=== PATIENT | female | born 1950 | race Caucasian/White ===

== ENCOUNTER → 2024-07-02 07:54 | Outpatient (REF) | payer MEDICARE, SELFPAY ==
[2024-07-02 09:55] LABS: % Basophils 1.5 % (0-2); % Immature Granulocytes 0.5 % (0-0.5); % Lymphocytes 31.4 % (20.5-51.1); % Monocytes 8.7 % (1.7-9.3); % Neutrophils 50.9 % (42.2-75.2); Absolute Basophils 0.1 10^3/uL (0-0.2); Absolute Eosinophils 0.6 10^3/uL (0-0.7); Absolute Lymphocytes 2.5 10^3/uL (1.2-3.4); Absolute Monocytes 0.7 10^3/uL (0.1-0.6); Absolute Neutrophils 4.1 10^3/uL (1.4-6.5); Hematocrit 42.2 % (37.0-47.0); Hemoglobin 14.1 g/dL (12.0-16.0); Mean Corp Hgb Conc. 33.4 g/dL (33.0-37.0); Mean Corpuscular Volume 101.7 fL (81.0-99.0); Mean Platelet Volume 11.1 fL (7.4-10.4); Nucleated Red Blood Cells % 0 %; Platelet Count 199 10^3/uL (130-400); Red Blood Cell Count 4.15 10^6/uL (4.20-5.40); Red Cell Dist. Width 12.9 % (11.5-14.5)
[2024-07-02 10:07] LABS: ALT (SGPT) 34 U/L (0-35); AST (SGOT) 32 U/L (14-36); Alkaline Phosphatase 75 U/L (38-126); Blood Urea Nitrogen 20 mg/dl (7-17); Calcium 9.5 mg/dl (8.4-10.2); Carbon Dioxide 30 mmol/L (22-30); Chloride 103 mmol/L (98-107); Glucose 104 mg/dl (70-99); HDL Cholesterol 63 mg/dl; LDL Cholesterol, Calculated 114 mg/dl; Potassium 4.2 mmol/L (3.5-5.1); Sodium 139 mmol/L (135-145); Total Bilirubin 0.4 mg/dl (0.2-1.3); Total Cholesterol 199 mg/dl (50-199); Total Protein 6.2 g/dl (6.3-8.2); Triglyceride 111 mg/dl (10-149); Very Low Density Lipoprotein 22 mg/dl (0-30); eGFR > 60.00
[2024-07-02 10:20] LABS: Glycohemoglobin (HgbA1c) 5.4 % (4.0-5.6)
[2024-07-02 10:33] LABS: TSH 3.48 uIU/ml (0.47-4.68)
== END ==
LOC: HWLAB 07:54
PROVIDERS: ATTENDING PHYSICIAN Internal Medicine
DX: E78.5 Hyperlipidemia, unspecified (principal); R73.01 Impaired fasting glucose; R53.83 Other fatigue
CPT/HCPCS: 36415; 80053; 80061; 83036; 84443; 85025

== ENCOUNTER → 2024-07-05 09:36 | Outpatient (REF) | payer MEDICARE, SELFPAY | LOC: HWRAD 09:36 | PROVIDERS: ATTENDING PHYSICIAN Internal Medicine | DX: Z87.891 Personal history of nicotine dependence (principal) | CPT/HCPCS: 71271 ==

== ENCOUNTER → 2025-06-03 10:50 | Outpatient (REF) | payer MEDICARE, SELFPAY | LOC: HWRAD 10:50 | PROVIDERS: ATTENDING PHYSICIAN Internal Medicine | DX: M25.511 Pain in right shoulder (principal); M25.512 Pain in left shoulder; M25.551 Pain in right hip; M25.552 Pain in left hip | CPT/HCPCS: 73030; 73521 ==

== ENCOUNTER 2025-08-25 17:39 | Emergency (ER) | payer MEDICARE, SELFPAY ==
[2025-08-25 17:41] VITALS: BP 129/87
[2025-08-25 18:05] LABS: Hematocrit 43.5 % (37.0-47.0); Hemoglobin 14.8 g/dL (12.0-16.0); Mean Corp Hgb Conc. 34.0 g/dL (33.0-37.0); Mean Corpuscular Volume 94.4 fL (81.0-99.0); Nucleated Red Blood Cells % 0 %; Platelet Count 256 10^3/uL (130-400); Red Cell Dist. Width 13.4 % (11.5-14.5)
[2025-08-25 18:21] LABS: ALT (SGPT) 54 U/L (0-35); AST (SGOT) 28 U/L (14-36); Albumin 4.4 g/dl (3.5-5.0); Alkaline Phosphatase 79 U/L (38-126); Blood Urea Nitrogen 23 mg/dl (7-17); Calcium 9.6 mg/dl (8.4-10.2); Carbon Dioxide 26 mmol/L (22-30); Chloride 98 mmol/L (98-107); Glucose 112 mg/dl (70-99); Potassium 4.1 mmol/L (3.5-5.1); Sodium 133 mmol/L (135-145); Total Protein 6.8 g/dl (6.3-8.2); eGFR 59.12
[2025-08-25 18:38] LABS: COVID-19 Antigen Negative (Negative)
[2025-08-25 19:12] VITALS: BP 132/92
--- NOTE | 2025-08-25 19:28 | ED.GENMED ---
History of Present Illness
General
Chief Complaint: Weakness
Time Seen by Provider: 08/25/25 19:28
History of Present Illness
History of Present Illness:
FOCUSED PAST MEDICAL HISTORY
- High blood pressure, anxiety/depression
REVIEW OF OLD RECORDS
-
Note:
CHIEF COMPLAINT(S)
Sinus infection, insomnia, chills, and body aches.
HISTORY OF PRESENT ILLNESS
The patient is a 75-year-old female with a recent history of sinus infection. She initially sought care at an urgent care center where she was prescribed antibiotics. She also began self-administration of [id number] medications, including
Mucinex and nasal sprays. The patient contacted her primary care physician due to persistent headaches and was prescribed a tapering dose of prednisone, of which she has two doses remaining.
The patient reports experiencing insomnia and body aches, which she attributes partly to the steroid regimen, although these symptoms were present before starting the medication. Additionally, she describes a history of urinary frequency, waking
four to five times per night to urinate, but denies any current dysuria or recent changes in urinary symptoms. She has been on Augmentin, which would generally cover urinary tract infections, making it less likely given her lack of urinary symptoms
change.
Past testing for COVID-19 and influenza was negative, and although she experienced chills, her temperature and white blood cell count remained within the higher end of normal, lacking any significant deviation suggestive of a severe bacterial
infection.
SOCIAL HISTORY
The patient reported a concern with her sleeping pattern, specifically related to her inability to rest sufficiently.
REVIEW OF SYSTEMS
- Neurological: Persistent headaches, insomnia.
- Respiratory: No wheezing or labored breathing.
- Gastrointestinal: Normal bowel movements.
- Genitourinary: Urinary frequency, no burning sensation.
- Musculoskeletal: Body aches.
- General: Chills, no fever.
PHYSICAL EXAM
General: Alert, no acute distress.
Skin: Warm, dry.
Head: Normocephalic, atraumatic.
Neck: Supple, trachea midline.
Eyes, Ears, Nose, Mouth, and Throat: Oral mucosa moist. Hoarse voice noted.
Cardiovascular: Normal peripheral perfusion.
Respiratory: Respirations are non-labored. No wheeze. Clear lungs
Gastrointestinal: Abdomen non-distended.
Back: Normal range of motion, Normal alignment.
Musculoskeletal: Some decreased active range of motion at the left hip due to reported pain
Neurological: Alert and oriented to person, place, time, and situation, No focal neurological deficit observed.
Psychiatric: Cooperative, appropriate mood & affect.
PLAN
- Continue current antibiotics (Augmentin) as prescribed.
- Educate the patient on the possibility of symptoms being viral in nature.
- Recommend OTC use of Flonase (intranasal steroid) for sinus inflammation.
- Discussed potential adverse effects of steroids on sleep and advise regarding insomnia management.
- Consider blood cultures if symptoms persist, although unlikely to indicate a bloodstream infection. Vital signs are not consistent with sepsis.
- Return for evaluation if symptoms worsen or fail to improve.
DIFFERENTIAL DIAGNOSIS
The Differential Diagnosis includes, in no particular order and is not limited to:
- Viral upper respiratory tract infection
- Bacterial sinusitis
- Urinary tract infection
- Medication side effects (prednisone-induced insomnia)
- Viral syndrome
- Dehydration effects
- Anxiety-related disorder
- Chronic sinusitis
- Allergy-related symptoms
- Nocturia due to age-related changes
RADIOLOGY
- Chest x-ray clear
LABS
- White count 10.7, COVID-negative, chemistries relatively unremarkable
UPDATE
-SUMMARY OF ENCOUNTER
The patient, a 75-year-old female, presented to the emergency department with complaints consistent with a viral upper respiratory infection. She had been previously treated for a sinus infection with Amoxicillin/Clavulanate (Augmentin) and nasal
sprays. Despite her symptoms, the patient appeared well and did not exhibit any signs of sepsis. Her heart rate was in the high 90s, but she remained afebrile. A urinalysis was considered but not conducted due to her lack of new urinary symptoms and
her ongoing treatment with Augmentin.
PLAN
The patient is advised to continue her current treatment with Amoxicillin/Clavulanate. It was recommended to use Fluticasone Propionate (Flonase) for sinus inflammation. Additionally, management for insomnia potentially exacerbated by steroid use
was discussed. The patient was educated on the symptoms being viral in nature and advised to seek reevaluation if symptoms worsen or do not improve.
MEDICAL DECISION MAKING
1. Number and Complexity of Problems Addressed:
Chronic conditions affecting care include a history of sinus infection and steroid-induced insomnia. Differential diagnosis considerations included viral upper respiratory tract infection, bacterial sinusitis, urinary tract infection, medication
side effects, viral syndrome, anxiety-related disorder, and chronic sinusitis.
2. Data:
Category 1: A urinalysis was considered but ultimately not performed due to the ongoing treatment with Amoxicillin/Clavulanate and lack of new symptoms.
3. Risk:
Consideration was given for more invasive diagnostic testing, but it was deemed unnecessary. Prescription medication management involved continued antibiotics and intranasal steroids.
DIAGNOSIS
- Viral upper respiratory infection (J06.9)
- Sinusitis (J01.90)
Past History
Past History
ED Past Medical History: HTN and Psychiatric (Depression)
ED Past Surgical History: Appendectomy and Tonsilectomy
Social History
Employment: Employed
Phy Exam
Physical Exam
Physical Exam:
See HPI
Course
Orders/Labs/Results
Orders:
Orders
08/25/25 17:44
CR Chest - 2 Views Urgent
Comment:
Reason For Exam: fever
08/25/25 17:52
COVID-19 Antigen Urgent
Source: Nasal Swab
Complete Blood Count/With Diff Urgent
Comprehensive Metabolic Panel Urgent
Influenza A+B Rapid Molecular Urgent
[facility] Source: Nasal Swab
Specimen Description:
Abnormal Lab Results
08/25/25
17:52
MCH 32.1 H pg
(27.0-31.0)
Abs Immat Gran (auto) 0.1 H 10^3/uL
(0-0.05)
Absolute Neuts (auto) 7.8 H 10^3/uL
(1.4-6.5)
Absolute Monos (auto) 1.2 H 10^3/uL
(0.1-0.6)
Immature Gran % 0.7 H %
(0-0.5)
Lymphocytes % 13.8 L %
(20.5-51.1)
Monocytes % 11.1 H %
(1.7-9.3)
Sodium 133 L mmol/L
(135-145)
BUN 23 H mg/dl
(7-17)
Glucose 112 H mg/dl
(70-99)
ALT 54 H U/L
(0-35)
08/25/25 17:52
08/25/25 17:52
Vital Signs
Initial and Last Documented VS:
Initial Vital Signs
Temp Pulse Resp BP Pulse Ox
37.0 C 102 20 129/87 92
08/25/25 17:41 08/25/25 17:41 08/25/25 17:41 08/25/25 17:41 08/25/25 17:41
Last Documented Vital Signs
Temp Pulse Resp BP Pulse Ox
37.5 C 98 20 132/92 94
08/25/25 19:21 08/25/25 19:15 08/25/25 19:15 08/25/25 19:12 08/25/25 19:29
*Pulse Oximetry
SaO2: 94
Oxygen Mode of Delivery: Room air
Patient hypoxic: no
*Critical Care Note
Total Time (30-74mins, 75-104mins- exclusive of procedures): Not Applicable
ED Attending Note
-
Portions of this chart may have been created with voice recognition software.� Occasional wrong word or��sound alike� substitutions may have occurred due to the inherent limitations of voice recognition software.
Discharge Plan
Departure
Patient Disposition: Home (Routine Discharge)
Date of Disposition: 08/25/25
Time of Disposition: 19:40
Patient with high blood pressure during this ER visit?: Yes
Discharge Problem:
Acute viral syndrome
Instructions: Generalized Weakness (DC), BLOOD PRESSURE
Prescriptions:
No Action
trazodone 100 MG tablet
150 mg PO HS PRN (Reason: sleep)
sertraline 100 MG tablet
100 mg PO HS
bupropion HCl 150 MG tablet extended release 24 hr
150 mg PO DAILY@1000
mupirocin 1 GRAM ointment
1 g intranasal BID
Patient Comments:
started medication on monday morning 09/07/19 and was taking BID
sennosides [senna] 1 TABLET tablet
2 tab PO BID 0RF
acetaminophen 325 MG tablet
650 mg PO Q4HWA 0RF
aspirin 325 MG tablet
325 mg PO DAILY 0RF
magnesium hydroxide 30 ML suspension
30 ml PO DAILYPRN PRN (Reason: constipation) 0RF
docusate sodium 100 MG capsule
100 mg PO BID 0RF
gabapentin 300 MG capsule
300 mg PO TID Qty: 30 0RF
famotidine 20 MG tablet
20 mg PO HS Qty: 30 0RF
hydrocodone-acetaminophen 1 TABLET tablet
1 tab PO Q4HPRN PRN (Reason: moderate-severe pain) Qty: 35 0RF
Rx Instructions:
1 tab moderate pain or 2 if pain severe
dx joint replacement
ongoing therapy
lisinopril 20 MG tablet
20 mg PO DAILY@1000 Qty: 0 0RF
Rx Instructions:
hold systolic blood pressure <130
naproxen sodium [Aleve] 220 MG tablet
220 mg PO BID Qty: 0 0RF
Rx Instructions:
standing order
with food
do not take within 2 hours of asa
hydrochlorothiazide 25 MG tablet
25 mg PO DAILY@1000 Qty: 0 0RF
Rx Instructions:
hold systolic blood pressure <130
Activity Restrictions/Additional Instructions:
Your chest x-ray is clear. Your temperature is normal. Your white blood cell count is normal at 10.7. Other basic blood work is unremarkable. COVID and flu testing are both negative. You can continue the antibiotic as well as nasal sprays. It
is possibly could have a viral syndrome. Return here if worse or other concerns
Interventions
Interventions:
*General Assessment Last Done: 08/25/25 17:41
*Neglect/Abuse Screening Last Done: 08/25/25 19:17
*ED- Fall Risk Assessment Last Done: 08/25/25 19:17
*ED COVID-19 Vaccine History Last Done: 08/25/25 19:17
*ED Influenza Vaccine History Last Done: 08/25/25 19:17
ED- Cardiac Assessment Last Done: 08/25/25 19:17
ED- Neurological Assessment Last Done: 08/25/25 19:17
ED- Pulmonary Assessment Last Done: 08/25/25 19:17
Discharge Date and Time
Print Language: TURKMEN
== END 2025-08-25 20:02 | disposition home or self-care (01) ==
LOC: EMR 17:39
PROVIDERS: EMERGENCY PHYSICIAN Emergency Medicine; FAMILY PHYSICIAN Internal Medicine
DX: B34.9 Viral infection, unspecified (principal); J06.9 Acute upper respiratory infection, unspecified; J32.9 Chronic sinusitis, unspecified; Z11.52 Encounter for screening for COVID-19; I10 Essential (primary) hypertension
CPT/HCPCS: 99284; 71046; 80053; 85025; 87502; 87811

== ENCOUNTER 2025-10-01 06:10 | Inpatient (IN) | payer MEDICARE, SELFPAY ==
--- NOTE | 2025-09-09 14:13 | CM ---
Demographics: confirmed
Living situation: lives with friend
Support Person Post Operatively: Friend Coleen
History of
VN: yes, not currently on service
SNF: no
Outpatient: [facility]
Has patient purchased required equipment: yes
PCP: active
Pharmacy: [facility]
Post Operative Discharge Plan: Patient stated that she had a undisclosed delmis allergy and has questions regarding implant and continuing with surgery. CM updated Olivia at [facility] with patient's questions and concerns.
[2025-09-17 14:05] VITALS: BMI 34.7
[2025-09-17 14:28] LABS: Hematocrit 41.1 % (37.0-47.0); Hemoglobin 13.6 g/dL (12.0-16.0); Mean Corp Hgb Conc. 33.1 g/dL (33.0-37.0); Mean Corpuscular Volume 98.1 fL (81.0-99.0); Platelet Count 236 10^3/uL (130-400); Red Cell Dist. Width 13.2 % (11.5-14.5)
[2025-09-17 15:00] VITALS: BMI 34.7
[2025-09-17 15:21] LABS: ALT (SGPT) 25 U/L (0-35); AST (SGOT) 23 U/L (14-36); Albumin 4.0 g/dl (3.5-5.0); Alkaline Phosphatase 60 U/L (38-126); Blood Urea Nitrogen 13 mg/dl (7-17); Calcium 9.4 mg/dl (8.4-10.2); Carbon Dioxide 29 mmol/L (22-30); Chloride 103 mmol/L (98-107); Estimated Creatinine Clearance 73 ml/min; Glucose 101 mg/dl (70-99); Potassium 4.6 mmol/L (3.5-5.1); Sodium 138 mmol/L (135-145); Total Protein 6.2 g/dl (6.3-8.2); eGFR > 60.00
[2025-09-18 08:39] LABS: Glycohemoglobin (HgbA1c) 5.3 % (4.0-5.9)
[2025-10-01] VITALS (13 sets, daily range): BP systolic 86–140; BP diastolic 49–83; PULSE 77–87; O2SAT 93
[2025-10-01] MEDS: TYLENOL 650 MG PO (06:35)
[2025-10-01] MEDS: CELEBREX 200 MG PO (06:35)
[2025-10-01] MEDS: NORMOSOL-R/PLASMALYTE-A 1000 IV ×2 (06:37→10:14)
--- NOTE | 2025-10-01 07:39 | W.PN.UPDATE ---
Update Note
Progress Note Update
L hip OA s/p L LES w/ Dr Samuel 10/01/25
- s/p L TKA, 2018, by Dr Weeks
DVT prophylaxis - ASA, b/l venous foot pumps
HTN - + parameters - monitor BP
Post-operative orthostasis after L TKA - monitor orthostatic VS
- IVF running. Oral hydration encouraged
- Minimize opioids
- TEDS
- Midodrine for SBP <120
Pulmonary nodule and chronic ARMSTRONG - monitor O2
- IS
Ambulatory dysfunction with balance difficulties - on fall precautions
Recent tobacco abuse and current vape use - would benefit from prophylactic abx upon d/c
HLD
Diverticulosis
Nephrolithiasis
Benign essential tremor
Chronic low back pain
Overactive bladder with urinary incontinence
Acute frontal sinusitis, early August 2025, resolved with antibiotic therapy and steroids
Dedra esophagitis, secondary to steroid treatment for the above, improved with Fluconazole
Depression
Anxiety.
Obesity, BMI 34.7
[2025-10-01] MEDS: NORCO 5/325 1 TABLET PO ×4 (08:49→21:05)
[2025-10-01] MEDS: CLARITIN 10 MG PO (10:45)
[2025-10-01] MEDS: FLORASTOR 250 MG PO ×2 (10:45→19:40)
--- NOTE | 2025-10-01 11:10 | PTCARENOTE ---
Pt received s/p L LES. AAOx3. VSS. LLE neurovascular checks WDL. L hip dressing CDI. IVF infusing through R hand PIV per order. Assisted OOB to bathroom and chair by RN and PCT with RW. Pt educated about hip precautions/activity restrictions. Call
[place] in reach. Visitor at bedside.
[2025-10-01] MEDS: DILAUDID 0.5 MG IV (13:04)
[2025-10-01] MEDS: ANCEF 5 IV ×2 (13:04→21:02)
[2025-10-01] MEDS: TORADOL 10 MG IV (17:49)
[2025-10-01] MEDS: ASPIRIN 325 MG PO (17:49)
[2025-10-01] MEDS: BACTROBAN 2% OINTMENT 1 APPLIC NASAL (19:39)
[2025-10-01] MEDS: COLACE 100 MG PO (19:40)
[2025-10-01] MEDS: SENOKOT 17.2 MG PO (19:40)
[2025-10-01] MEDS: NEURONTIN 300 MG PO (21:02)
[2025-10-01] MEDS: PEPCID 20 MG PO (21:02)
[2025-10-02 03:35] VITALS: BP 110/59
[2025-10-02 07:00] VITALS: BP 115/63
[2025-10-02] MEDS: NORCO 5/325 1 TABLET PO ×2 (07:43→12:15)
[2025-10-02] MEDS: MOBIC 15 MG PO (08:09)
[2025-10-02] MEDS: COLACE 100 MG PO (08:09)
[2025-10-02] MEDS: SENOKOT 17.2 MG PO (08:09)
[2025-10-02] MEDS: CLARITIN 10 MG PO (08:09)
[2025-10-02] MEDS: ASPIRIN 325 MG PO (08:10)
[2025-10-02] MEDS: FLORASTOR 250 MG PO (08:10)
[2025-10-02] MEDS: BACTROBAN 2% OINTMENT 1 APPLIC NASAL (08:10)
--- NOTE | 2025-10-02 08:53 | CM ---
CM met with patient and friends in room. CM confirmed appointment for [facility] in [place] with first appointment for 10/02. Patient is enthusiastic for discharge.
PLAN: home with outpatient PT.
--- NOTE | 2025-10-02 10:02 | W.PN.ORTHO ---
Today's Communication / Plan
-
Continue to monitor BP.
Await PT and OT recs.
D/c later today if remaining clinically stable.
Assessment
.
Distal Motor Intact: Yes
Dressing:
Clean, dry and intact.
Assessment:
L hip OA s/p L LES w/ Dr Samuel 10/01/25
- s/p L TKA, 2019, by Dr Weeks
DVT prophylaxis - ASA, b/l venous foot pumps
HTN - + parameters - BPs overall stable by POD 1
Post-operative orthostasis after L TKA - orthostatic VS stable last night. Will likely be reassessed w/ therapy today
- S/p IVF. Oral hydration encouraged
- Minimized opioids
- TEDS
- Midodrine for SBP <120
Pulmonary nodule and chronic ARMSTRONG - O2 stable on RA
- IS
Ambulatory dysfunction with balance difficulties - on fall precautions
Recent tobacco abuse and current vape use - would benefit from prophylactic abx upon d/c
HLD
Diverticulosis
Nephrolithiasis
Benign essential tremor
Chronic low back pain
Overactive bladder with urinary incontinence
Acute frontal sinusitis, early August 2025, resolved with antibiotic therapy and steroids
Dedra esophagitis, secondary to steroid treatment for the above, improved with Fluconazole
Depression
Anxiety.
Obesity, BMI 34.7
Plan
.
Surgery / Date: L LES w/ Dr Samuel 10/01/25
DVT Prophylaxis: Aspirin
Activity:
Out of bed.
PT/OT
Discharge Plan: Home w/ Outpatient PT
Subjective
.
.:
Patient resting comfortably in her bed this AM.
L hip pain well controlled w/ current pain med regimen.
Denies any new significant complaints.
Eager for potential d/c today.
Vital Signs and Labs
.
Vital Signs and Labs:
Lab Results
10/02/25 06:00
09/17/25 12:23
Temp Pulse Resp BP Pulse Ox
98.7 F 87 18 115/63 96
10/02/25 07:00 10/02/25 07:00 10/02/25 07:00 10/02/25 08:10 10/02/25 07:00
Non-invasive Hgb result: 11.9
Physical Exam
-
HEENT: No pallor, cyanosis, or jaundice. Throat clear.
NECK: Supple. No JVD.
RESPIRATORY: Lungs clear to auscultation.
CVS: S1, S2 normal. RRR.�
ABDOMEN: Soft, non-tender. No distension. Obese.
EXTREMITIES: Strength equal, no calf pain with palpation/dorsiflexion. Calves soft.
IMMUNOLOGIST: AOx3. No focal deficits. 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
--- NOTE | 2025-10-02 10:10 | W.DS.TRANS ---
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
-
Discharge Instructions:
Sleep Apnea Risk Intermediate
Discharge Diagnosis/Procedures L hip OA s/p L LES w/ Dr Samuel 10/01/25
Diet Other diet
Additional Diets Diabetic carb controlled x1 week for wound
healing/infection prevention.
Adequate hydration, minimize opioids, and wear
TEDs stockings to prevent low blood pressure/
dizziness.
Activity As tolerated,With Walker
Driving Restrictions Not until seen by your Dr
Bathing Restrictions OK to Shower
Other Services PT
Wound Care Dressing to be removed 1 week post-surgery.
Instructions:
Stand-Alone Forms: Total Hip/Knee Replacement D/C
Changes to Home Medications: Yes
Discharge Medications:
DC Medications w/original date entered in [facility]
fexofenadine 180 mg tablet 180 mg PO DAILY Allergies 09/15/25
mupirocin 2 % topical ointment 1 applic intranasal BID #1 tube 09/17/25
cefadroxil 500 mg capsule 500 mg PO BID #14 caps 09/24/25
famotidine 20 mg tablet (Pepcid) 20 mg PO HS #30 tabs 09/24/25
gabapentin 300 mg capsule 300 mg PO HS neuropathic pain/sleep #10 caps 09/24/25
hydrocodone 5 mg-acetaminophen 325 mg tablet 1 - 2 tab PO Q6H PRN moderate-severe pain #30 tabs 09/24/25
meloxicam 15 mg tablet 15 mg PO DAILY #14 tabs 09/24/25
ondansetron HCl 4 mg tablet 4 mg PO Q6H PRN nausea and vomiting #30 tabs 09/24/25
Saccharomyces boulardii 250 mg capsule (Florastor) 250 mg PO BID #14 caps 10/02/25
acetaminophen 325 mg tablet 650 mg (2 x 325 mg) PO Q6H PRN mild pain #60 tabs 10/02/25
aspirin 325 mg tablet 325 mg PO DAILY #30 tabs 10/02/25
docusate sodium 100 mg capsule 100 mg PO BID #30 caps 10/02/25
hydrochlorothiazide 25 mg tablet 25 mg PO DAILY Blood Pressure #1 tab 10/02/25
lisinopril 20 mg tablet 20 mg PO DAILY Blood Pressure #1 tab 10/02/25
magnesium hydroxide 400 mg/5 mL oral suspension (Milk of Magnesia) 30 ml PO HS PRN constipation #3,780 mL 10/02/25
sennosides 8.6 mg tablet (Aleta-sena) 17.2 mg (2 x 8.6 mg) PO BID #30 tabs 10/02/25
Home Medication Changes
cefadroxil 500 mg capsule 500 mg PO BID #14 caps 09/24/25
famotidine 20 mg tablet (Pepcid) 20 mg PO HS #30 tabs 09/24/25
gabapentin 300 mg capsule 300 mg PO HS neuropathic pain/sleep #10 caps 09/24/25
hydrocodone 5 mg-acetaminophen 325 mg tablet 1 - 2 tab PO Q6H PRN moderate-severe pain #30 tabs 09/24/25
meloxicam 15 mg tablet 15 mg PO DAILY #14 tabs 09/24/25
ondansetron HCl 4 mg tablet 4 mg PO Q6H PRN nausea and vomiting #30 tabs 09/24/25
Saccharomyces boulardii 250 mg capsule (Florastor) 250 mg PO BID #14 caps 10/02/25
acetaminophen 325 mg tablet 650 mg (2 x 325 mg) PO Q6H PRN mild pain #60 tabs 10/02/25
aspirin 325 mg tablet 325 mg PO DAILY #30 tabs 10/02/25
docusate sodium 100 mg capsule 100 mg PO BID #30 caps 10/02/25
magnesium hydroxide 400 mg/5 mL oral suspension (Milk of Magnesia) 30 ml PO HS PRN constipation #3,780 mL 10/02/25
sennosides 8.6 mg tablet (Aleta-sena) 17.2 mg (2 x 8.6 mg) PO BID #30 tabs 10/02/25
Pending Results: No
[2025-10-02 11:00] VITALS: BP 95/55
[2025-10-02 11:33] VITALS: BP 104/57; BP 107/53; BP 116/56; BP 116/65; PULSE 78; PULSE 85; O2SAT 92
[2025-10-02 12:29] VITALS: BP 100/74; BP 114/67; PULSE 82; PULSE 84
[2025-10-02 13:56] VITALS: BP 104/53
== END 2025-10-02 14:26 | disposition home or self-care (01) | DRG 470 ==
LOC: 2 SOUTH 06:10
PROVIDERS: ADMITTING PHYSICIAN Orthopaedic Surgery; FAMILY PHYSICIAN Internal Medicine
PROC: 0SRB0JA Replacement of Left Hip Joint with Synthetic Substitute, Uncemented, Open Approach (ICD-10-PCS; 2025-10-01)
DX: M16.12 Unilateral primary osteoarthritis, left hip (principal); I10 Essential (primary) hypertension; M85.80 Other specified disorders of bone density and structure, unspecified site; E78.5 Hyperlipidemia, unspecified; K57.30 Diverticulosis of large intestine without perforation or abscess without bleeding; Z87.442 Personal history of urinary calculi; G25.0 Essential tremor; G89.29 Other chronic pain; N32.81 Overactive bladder; R32 Unspecified urinary incontinence; F32.A Depression, unspecified; F41.9 Anxiety disorder, unspecified; Z68.34 Body mass index [BMI] 34.0-34.9, adult; E66.9 Obesity, unspecified; F17.290 Nicotine dependence, other tobacco product, uncomplicated; Z98.41 Cataract extraction status, right eye; Z98.42 Cataract extraction status, left eye
CPT/HCPCS: 36415; 73502; 80053; 83036; 85027; 87070; 93005; 97110; 97116; 97163; 97167; 97530; 97535; C1713; C1776